=== PATIENT | female | born 1950 | race African-American/Black ===

== ENCOUNTER 2017-01-14 11:05 | Observation (INO) | payer MEDICARE ==
--- NOTE | 2017-01-14 12:03 | CT ---
CT BRAIN WITHOUT CONTRAST: HISTORY: Head injury. Altered mental status. COMPARISON: 10/08/2015 FINDINGS: No evidence of acute infarct, hemorrhage, midline shift, or abnormal extraaxial fluid collections is seen. The ventricular size is normal, and the basilar cisterns are patent. The bony calvarium is intact. The visualized paranasal sinuses and mastoid air cells are well aerated. IMPRESSION: No CT evidence of acute intracranial process. POS: [facility]
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
[2017-01-14 13:56] LABS: #Eosinphils 0.2 thou/uL (0.0-0.7); #Lymphocytes 1.5 thou/uL (1.20-3.40); #Monocytes 0.6 thou/uL (0.11-0.59); #Neutrophils 3.4 thou/uL (1.40-6.50); %Basophils 0.3 % (0.0-1.0); %Eosinophils 3.7 % (0.0-10.0); %Lymphocytes 25.8 % (21.0-51.0); %Monocytes 9.6 % (0.0-10.0); Hematocrit 44.2 % (36.0-47.0); Mean Platelet Volume 7.4 fL (7.4-10.4); Red Blood Cell (RBC) Count 5.49 mill/uL (4.20-5.40); White Blood Cell (WBC) Count 5.7 thou/uL (4.8-10.8)
[2017-01-14] MEDS ORDERED: Adacel (T-DAP) 0.5 ML VIAL ONE (14:01)
[2017-01-14] MEDS ORDERED: Ibuprofen 800 MG TAB ONE (14:02)
[2017-01-14 14:12] LABS: ALT (SGPT) 13 U/L (8-55); AST (SGOT) 17 U/L (5-34); Alkaline Phosphatase 151 U/L (40-150); Anion Gap 12 mmol/L (10-20); BUN (Urea Nitrogen) 20 mg/dL (9.8-20.1); Bilirubin, Total 0.2 mg/dL (0.2-1.2); CK (CPK) 115 U/L (29-168); Calc. Creatinine Clearance 0 mL/min (70-130); Calcium 9.7 mg/dL (7.8-10.44); Carbon Dioxide 26 mmol/L (23-31); Chloride 109 mmol/L (98-107); Estimated GFR-MDRD 53; Globulin 3.3 g/dL (2.4-3.5); Protein, Total 7.3 g/dL (6.0-8.3)
[2017-01-14 14:16] LABS: Troponin I 0.011 ng/mL (< 0.028)
[2017-01-14] MEDS ORDERED: Acetaminophen 500 MG TAB ONE (15:42)
[2017-01-14] MEDS ORDERED: Ondansetron HCl/PF 4 MG/2 ML Vial IVP PRN (15:47)
[2017-01-14] MEDS ORDERED: Dextrose 5% in Water 1,000 ML IV PRN (15:47)
[2017-01-14] MEDS ORDERED: Dextrose 50% Abboject 50 ML SYRINGE SLOW IVP PRN (15:47)
[2017-01-14] MEDS ORDERED: Ondansetron ODT 4 MG TAB PO PRN (15:47)
[2017-01-14 18:29] VITALS: BMI 28.5
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
[2017-01-14] MEDS: Famotidine 20 MG TAB PO SCH (21:10)
[2017-01-15 02:00] LABS: Amphetamine Not Detected (NotDetected); Methadone Not Detected (NotDetected); Methamphetamine Not Detected (NotDetected)
[2017-01-15] MEDS: Acetaminophen 500 MG TAB PO PRN ×2 (03:00→07:55)
[2017-01-15 05:05] LABS: #Basophils 0.1 thou/uL (0.0-0.2); #Eosinphils 0.2 thou/uL (0.0-0.7); #Lymphocytes 1.5 thou/uL (1.20-3.40); #Monocytes 0.5 thou/uL (0.11-0.59); #Neutrophils 3.3 thou/uL (1.40-6.50); %Eosinophils 3.8 % (0.0-10.0); %Lymphocytes 27.5 % (21.0-51.0); %Monocytes 8.8 % (0.0-10.0); Hematocrit 37.5 % (36.0-47.0); Mean Platelet Volume 7.3 fL (7.4-10.4); Red Blood Cell (RBC) Count 4.62 mill/uL (4.20-5.40); White Blood Cell (WBC) Count 5.6 thou/uL (4.8-10.8)
[2017-01-15 05:31] LABS: Anion Gap 12 mmol/L (10-20); BUN (Urea Nitrogen) 20 mg/dL (9.8-20.1); Calc. Creatinine Clearance 52 mL/min (70-130); Calcium 8.8 mg/dL (7.8-10.44); Carbon Dioxide 23 mmol/L (23-31); Chloride 109 mmol/L (98-107); Estimated GFR-MDRD 57; Magnesium 1.8 mg/dL (1.6-2.6); Phosphorus 3.1 mg/dL (2.3-4.7)
--- NOTE | 2017-01-15 07:37 | CT ---
PRELIMINARY REPORT/[facility]/EMERGENCY AFTER HOURS PROCEDURE: EXAM: CT Head Without Intravenous Contrast CLINICAL HISTORY: 66 years old, female; Injury or trauma; Fall; Patient HX: F/u fall TECHNIQUE: Axial computed tomography images of the head/brain without intravenous contrast. COMPARISON: No relevant prior studies available. FINDINGS: Brain: No acute findings. No hemorrhage. No significant white matter disease. No edema. Ventricles: No acute findings. No ventriculomegaly. Bones/joints: No acute findings. No acute fracture. Soft tissues: No acute findings. Sinuses: Unremarkable as visualized. No acute sinusitis. Mastoid air cells: Unremarkable as visualized. No mastoid effusion. IMPRESSION: No acute intracranial pathology. Thank you for allowing us to participate in the care of your patient. Dictated and Authenticated by: Elver Lopes MD 01/15/2017 5:52 AM Central Time ([place] \T\ [place]) FINAL REPORT EMERGENT AFTER HOURS CT OF THE BRAIN WITHOUT CONTRAST: COMPARISON: 01/14/17. FINDINGS/IMPRESSION: I agree with the findings and impression given in the preliminary report per [facility] physician. No ev idence of acute intracranial abnormality. POS: [facility]
[2017-01-15] MEDS: Famotidine 20 MG TAB PO SCH (07:54)
[2017-01-15] MEDS ORDERED: traMADol HCl 50 MG TAB PO PRN (08:50)
[2017-01-15] MEDS ORDERED: Docusate 100 MG CAP PO SCH (09:00)
[2017-01-15] MEDS ORDERED: Senokot 8.6 MG TAB PO SCH (09:00)
[2017-01-15 12:34] VITALS: TEMP 97.6
--- NOTE | 2017-01-15 13:19 | PRG ---
DATE OF SERVICE: 01/15/2017 SUBJECTIVE: Ms. Du is awake and alert this morning. She complains of some forehead soft tissue pain, but denies any photophobia, dizziness, or dyspnea. Her Sharon coma scale is E4, M6, V4, this is her baseline as confirmed by her who was at be dside. The patient has documented intermittent episodes of bradycardiac arrhythmia with rhythm puls es. Blood pressure, however, is stable. OBJECTIVE: VITAL SIGNS: Includes blood pressure 155/55, pulse is 63, respiratory rate 20, maximum temperature in the last 24 hours is 98.2 degrees Fahrenheit. Oxygen saturation is 98% on room air. Lowest hear t rate was noted at 49. HEENT: Reveals normocephalic and atraumatic. Pupils are equal, round, and reactive to light and ac commodation. Extraocular muscles are intact bilaterally. She has no jugular venous distention note d. HEART: Reveals regular rate and rhythm, no murmurs or gallops auscultated. CHEST: Lungs clear to auscultation bilaterally. CARDIOVASCULAR: Regular and unlabored. ABDOMEN: Soft, nontender and nondistended. Liver and spleen are nonpalpable below costal margins. EXTREMITIES: Reveals 2+ radial and pedal pulses bilaterally. No ankle edema is present. NEUROLOGIC: At baseline. LABORATORY DATA: Today includes CBC with 5600 white blood cells, hemoglobin and hematocrit stable a t 12.4 and 37.5 respectively. Platelet count is 255,000. Metabolic profile: Sodium 140, potassium 3.8, chloride is 109, bicarbonate is 23, BUN 20, creatinine is 1.15, glucose 88, magnesium is 1.8, and phosphorus is 3.1. Repeat head CT scan today is unremarkable for any acute intracranial patholo gy. IMPRESSION: 1. Status post blunt head trauma. 2. Acute traumatic brain injury with cerebral concussion. 3. Resolved acute postconcussive syndrome. 4. Acute hypokalemia. 5. Acute hypomagnesemia. 6. Acute bradycardiac arrhythmia, likely secondary to sick sinus syndrome. PLAN: 1. Correct abnormal electrolytes. 2. We will ask Cardiology to evaluate the patient and determine a need for possible pacemaker inser tion. The patient will be discharged home once she is cleared from cardiology standpoint. Above findings and plan discussed with the patient and her . They both indicated understandi ng of information given. I answered their questions.
[2017-01-15 13:33] VITALS: BP 155/55
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
--- NOTE | 2017-01-17 14:48 | EKG ---
Test Reason : Blood Pressure : / mmHG Vent. Rate : 056 BPM Atrial Rate : 056 BPM P-R Int : 208 ms QRS Dur : 084 ms QT Int : 408 ms P-R-T Axes : 041 000 019 degrees QTc Int : 393 ms Sinus bradycardia Otherwise normal ECG Confirmed by FAVIOLA TELLES, GREG Martin ([id number]), graphic editor DOLLY ECHEVARRIA ([id number]) on 01/17/2017 2:48:14 PM Referred By: Confirmed By:GREG SALMERON MD
== END 2017-01-15 13:57 | disposition home or self-care (01) ==
LOC: ERS 11:05 → IMCU/EMU 15:43
PROVIDERS: ADMIT Surgery; ATTEND Surgery
DX: F07.81 Postconcussional syndrome (principal); G89.11 Acute pain due to trauma; E03.9 Hypothyroidism, unspecified; K21.9 Gastro-esophageal reflux disease without esophagitis; I10 Essential (primary) hypertension; H40.9 Unspecified glaucoma; N17.9 Acute kidney failure, unspecified; R00.1 Bradycardia, unspecified; Z79.02 Long term (current) use of antithrombotics/antiplatelets; Z79.82 Long term (current) use of aspirin; Z79.899 Other long term (current) drug therapy; Z90.710 Acquired absence of both cervix and uterus; Z95.828 Presence of other vascular implants and grafts; Z87.820 Personal history of traumatic brain injury; Z86.73 Personal history of transient ischemic attack (TIA), and cerebral infarction without residual deficits
CPT/HCPCS: 12011; 70450 ×2; 72125; 80048; 80053; 80306; 82550; 82553; 83735; 84100; 84484; 85025 ×2; 90471; 90715; 93005; 97116; 97139; 99285; G0378; G8978; G8979; G8980; G8987; G8988; G8989; 36415; G0390; G8996-GN-CH; G8997-GN-CH; G8998-GN-CH

== ENCOUNTER 2017-09-01 19:34 | Emergency (ER) | payer MEDICARE ==
[2017-09-01 20:34] LABS: #Eosinphils 0.1 thou/uL (0.0-0.7); #Lymphocytes 0.5 thou/uL (1.20-3.40); #Monocytes 0.2 thou/uL (0.11-0.59); #Neutrophils 6.5 thou/uL (1.40-6.50); %Eosinophils 1.8 % (0.0-10.0); %Lymphocytes 6.9 % (21.0-51.0); %Monocytes 3.1 % (0.0-10.0); %Neutrophils 88.2 % (42.0-75.0); Hemoglobin 13.7 g/dL (12.0-16.0); Mean Corpuscular HGB CONC 34.3 g/dL (32.0-36.0); Mean Corpuscular Hemoglobin 26.6 pg (27.0-31.0); Mean Corpuscular Volume 77.5 fl (81.0-99.0); Mean Platelet Volume 7.2 fL (7.4-10.4); Platelet Count 277 thou/uL (130-400); RBC Distribution Width 13.2 % (11.5-14.5); Red Blood Cell (RBC) Count 5.15 mill/uL (4.20-5.40); White Blood Cell (WBC) Count 7.3 thou/uL (4.8-10.8)
[2017-09-01 20:56] LABS: ALT (SGPT) 11 U/L (8-55); AST (SGOT) 16 U/L (5-34); Albumin 4.1 g/dL (3.4-4.8); Alkaline Phosphatase 120 U/L (40-150); Anion Gap 12 mmol/L (10-20); BUN (Urea Nitrogen) 24 mg/dL (9.8-20.1); Bilirubin, Total 0.4 mg/dL (0.2-1.2); Calc. Creatinine Clearance 0 mL/min (70-130); Calcium 10.1 mg/dL (7.8-10.44); Carbon Dioxide 25 mmol/L (23-31); Chloride 107 mmol/L (98-107); Estimated GFR-MDRD 63; Globulin 3.2 g/dL (2.4-3.5); Glucose 101 mg/dL (80-115); Potassium 4.1 mmol/L (3.5-5.1); Protein, Total 7.3 g/dL (6.0-8.3); Sodium 140 mmol/L (136-145)
[2017-09-02] MEDS ORDERED: Ondansetron ODT 8 MG TAB ONE (00:07)
[2017-09-02] MEDS ORDERED: Promethazine HCl 25 MG/ML VIAL ONE (00:37)
== END 2017-09-02 01:45 | disposition home or self-care (01) ==
LOC: ERS 19:34
DX: R11.2 Nausea with vomiting, unspecified (principal); R10.13 Epigastric pain; R19.7 Diarrhea, unspecified; E78.5 Hyperlipidemia, unspecified; H40.9 Unspecified glaucoma; I10 Essential (primary) hypertension; Z86.73 Personal history of transient ischemic attack (TIA), and cerebral infarction without residual deficits
CPT/HCPCS: 36415; 80053; 82274; 83630; 83690; 85025; 87045; 87046; 87081; 87324; 87449; 87899; 93005; 96360; 96372; J2550

== ENCOUNTER 2017-10-27 20:35 | Observation (INO) | payer MEDICARE ==
[2017-10-27] MEDS ORDERED: traMADol HCl 50 MG TAB ONE (22:18)
[2017-10-27] MEDS ORDERED: HYDROcodone/Acetaminophen 5/325 mg Tablet ONE (22:26)
[2017-10-27 22:59] LABS: Troponin I Less than 0.010 ng/mL (< 0.028)
[2017-10-28 01:19] LABS: Troponin I Less than 0.010 ng/mL (< 0.028)
[2017-10-28] MEDS: HYDROcodone/Acetaminophen 5/325 mg Tablet PO PRN ×3 (08:46→17:40)
[2017-10-28] MEDS: Clopidogrel Bisulfate 75 MG TAB PO SCH (08:48)
[2017-10-28] MEDS ORDERED: TRIAMTERENE PO SCH (09:00)
[2017-10-28] MEDS ORDERED: HYDROCHLOROTHIAZIDE PO SCH (09:00)
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
--- NOTE | 2017-10-28 12:01 | MRI ---
MRI BRAIN WITHOUT AND WITHOUT CONTRAST: CLINICAL HISTORY: Right facial numbness, stroke symptoms. FINDINGS: The ventricular system is normal in size. There is scattered punctate signal alteration in the bilat eral cerebral hemispheres. There is no acute territorial infarction or intracranial hemorrhagic susc eptibility. No pathologic intraaxial enhancement. The large, central skull base flow voids are anderson nt. [place] intraocular lenses are absent. There is mild mucosal thickening in the paranasal sinuses . IMPRESSION: 1. No acute intracranial abnormalities. 2. Findings most consistent with minimal chronic microvascular ischemic disease. POS: [facility]
[2017-10-28] MEDS ORDERED: AMOXicillin 250 MG CAP PO SCH ×2 (12:30→17:00)
[2017-10-28] MEDS ORDERED: Triamterene/Hydrochlorothiazid 75 mg/50 mg Tablet PO SCH (12:30)
[2017-10-28] MEDS ORDERED: Gadobenate Dimeglumine 529 MG/1 ML (20ML VIAL) ONE (15:06)
--- NOTE | 2017-10-28 16:46 | ULT ---
ULTRASOUND CAROTID DOPPLER: 10/28/17 HISTORY: TIA. CVA protocol. COMPARISON: None. TECHNIQUE: Real time sutton scale, color doppler and spectral analysis of the extracranial carotid and vertebral a rteries was performed. Mild intimal wall thickening of the common carotid arteries. No elevated peak systolic velocities wit in the internal carotid arteries. Right ICA/CCA ratio is 1.13 and left ICA/CCA ratio is 1.44. IMPRESSION: No hemodynamically significant stenosis. POS: [facility]
[2017-10-28] MEDS ORDERED: diphenhydrAMINE 25 MG CAP PO PRN (19:56)
[2017-10-28] MEDS ORDERED: diphenhydrAMINE 25 MG CAP PO SCH (20:00)
[2017-10-28] MEDS: Rosuvastatin 10 MG TAB PO SCH (20:17)
[2017-10-28] MEDS: Mometasone/Formoterol 120 PUFF INHALER INH SCH (20:22)
[2017-10-28] MEDS: Cephalexin 250 MG CAP PO SCH (21:24)
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
[2017-10-29 04:44] LABS: PTT 31.9 SEC (22.9-36.1)
[2017-10-29 04:54] LABS: Anion Gap 13 mmol/L (10-20); BUN (Urea Nitrogen) 16 mg/dL (9.8-20.1); Calc. Creatinine Clearance 55 mL/min (70-130); Calcium 9.8 mg/dL (7.8-10.44); Carbon Dioxide 24 mmol/L (23-31); Cardiac Risk 3.5 (Less than 4.5); Chloride 103 mmol/L (98-107); Cholesterol 188 mg/dl (< 200 Desired); Estimated GFR-MDRD 68; Glucose 110 mg/dL (80-115); HDL Cholesterol 54 mg/dL (>60 Neg Risk); LDL Cholesterol, Calculated 102 mg/dL; Potassium 4.2 mmol/L (3.5-5.1); Sodium 136 mmol/L (136-145); Triglycerides 160 mg/dL (Less than 150)
[2017-10-29 04:55] LABS: Troponin I Less than 0.010 ng/mL (< 0.028)
[2017-10-29] MEDS: HYDROcodone/Acetaminophen 5/325 mg Tablet PO PRN ×4 (05:25→18:25)
[2017-10-29] MEDS: Levothyroxine Sodium 50 MCG TAB PO SCH (05:26)
[2017-10-29] MEDS: Mometasone/Formoterol 120 PUFF INHALER INH SCH ×2 (07:20→18:27)
[2017-10-29] MEDS: Clopidogrel Bisulfate 75 MG TAB PO SCH (10:19)
[2017-10-29] MEDS: Triamterene/Hydrochlorothiazid 75 mg/50 mg Tablet PO SCH (10:19)
[2017-10-29] MEDS: Cephalexin 250 MG CAP PO SCH ×4 (10:23→21:39)
[2017-10-29] MEDS: Rosuvastatin 10 MG TAB PO SCH (21:39)
--- NOTE | 2017-10-29 21:45 | CON ---
DATE OF CONSULTATION: 10/29/2017 HISTORY: Yris Du is a 66-year-old black female that had been following for many years. She has had atypical chest pain in the past and normal noninvasive testing. Most recent evaluation was in 03/2017. She had a normal Lexiscan Cardiolite test without evidence of ischemia, also in 01/2017, echo revealed ejection fraction of 55-60%. She was most recently seen in the office on the 08/25. She complained of bilateral leg cramping the left leg being worse. She was previously evaluated and found to have venous reflux disease. She has never tried to wear compression stockings and again was encouraged to do that. She now is admitted with some right-sided weakness. Recently, she has been in the heat and the family thinks she has not been drinking enough fluid. On the monitor, she has been having episodes of sinus pauses of 1.5 seconds. She denies any history of syncope. She may have dizziness which lasts 1 or 2 seconds. She denies any recent chest pain or shortness of breath. PAST MEDICAL HISTORY: Hypertension, hyperlipidemia. She does have venous reflux disease with a right common femoral and great saphenous vein as well as left proximal great saphenous vein reflux. OPERATIONS: Partial hysterectomy, cholecystectomy, right carpal tunnel release , cataract surgery, left foot surgery. HOME MEDICATIONS: Include amoxicillin 500 mg t.i.d., aspirin 81 daily, clopidogrel 75 mg daily (this was started after previous TIA according to the patient), estradiol 0.5 mg daily, Zetia 10 mg at bedtime, irbesartan 150 daily, levothyroxine 50 mcg daily, nitroglycerin spray p.r.n., omeprazole 40 mg daily, promethazine 25 mg q.4 hours p.r.n., tramadol p.r.n., triamterene- hydrochlorothiazide 75-50 q.a.m., CoQ10 of 100 mg daily. ALLERGIES: AMOXICILLIN and TRAMADOL. SOCIAL HISTORY: She does not smoke or drink. REVIEW OF SYSTEMS: Unremarkable. PHYSICAL EXAMINATION: VITAL SIGNS: Blood pressure 151/76, pulse 78. HEENT: PERRL. NECK: Supple. CHEST: Clear. CARDIAC: S1 and S2 are normal, without any S3, S4 or murmurs. ABDOMEN: Normal bowel sounds, without tenderness, organomegaly. EXTREMITIES: Revealed no clubbing, cyanosis or edema. NEUROLOGIC: Grossly intact. LABORATORY DATA: EKG revealed normal sinus rhythm and is unremarkable. Electrolytes normal. BUN 16, creatinine 0.98. Cholesterol 188, triglycerides 160, LDL 102, HDL 54. TSH is normal. Carotid Doppler examination reveals no hemodynamically significant stenosis. MRI revealed changes consistent with chronic microvascular ischemia. IMPRESSION: 1. Transient right-sided weakness. 2. Sinus pause of 1.5 seconds. At times, she may become lightheaded for 1 or 2 seconds and this may be related. 3. Normal Lexiscan Cardiolite test in 03/2017. 4. Hypertension. 5. Hypercholesterolemia. 6. Moderate aortic insufficiency. 7. Venous insufficiency, patient will not wear compression stockings. PLAN: Patient will continue to be monitored. She does have some symptoms of transient lightheadedness and arrangements will be made for a 30-day monitor to use once she is discharged to see if this ever correlates with her sinus pauses. ADDENDUM: There is a rhythm strip labeled as ventricular tachycardia on 2017 at 1751 hours; however, this is due to artifact with QRS complexes marching through the area. Echocardiogram also showed a small pericardial effusion, ejection fraction 60-65%, evidence for diastolic dysfunction, mild mitral regurgitation, aortic valvular sclerosis, moderate aortic insufficiency and mild to moderate tricuspid regurgitation. [facility]
[2017-10-30] MEDS: HYDROcodone/Acetaminophen 5/325 mg Tablet PO PRN ×3 (00:55→13:06)
[2017-10-30] MEDS: Levothyroxine Sodium 50 MCG TAB PO SCH (06:17)
[2017-10-30] MEDS: Cephalexin 250 MG CAP PO SCH ×2 (09:14→13:06)
[2017-10-30] MEDS: Triamterene/Hydrochlorothiazid 75 mg/50 mg Tablet PO SCH (09:15)
[2017-10-30] MEDS: Clopidogrel Bisulfate 75 MG TAB PO SCH (09:16)
[2017-10-30 11:41] VITALS: BMI 23.3
[2017-10-30 11:45] VITALS: BP 128/84; TEMP 98
--- NOTE | 2017-10-31 11:57 | EKG ---
Test Reason : Blood Pressure : / mmHG Vent. Rate : 064 BPM Atrial Rate : 064 BPM P-R Int : 216 ms QRS Dur : 088 ms QT Int : 404 ms P-R-T Axes : 037 -04 015 degrees QTc Int : 416 ms Sinus rhythm with 1st degree A-V block Minimal voltage criteria for LVH, may be normal variant Borderline ECG Confirmed by RONA SILVER ([id number]), development editor BRANDON DIAZ ([id number]) on 10/31/2017 11:57:13 AM Referred By: Confirmed By:RONA SILVER
== END 2017-10-30 13:15 | disposition home or self-care (01) ==
LOC: ERS 20:35 → 2SE 21:26
PROVIDERS: ADMIT Specialist; ATTEND Specialist
DX: G45.9 Transient cerebral ischemic attack, unspecified (principal); I10 Essential (primary) hypertension; E03.9 Hypothyroidism, unspecified; D50.9 Iron deficiency anemia, unspecified; H40.9 Unspecified glaucoma; E78.00 Pure hypercholesterolemia, unspecified; G47.00 Insomnia, unspecified; K21.9 Gastro-esophageal reflux disease without esophagitis; I35.1 Nonrheumatic aortic (valve) insufficiency; M19.90 Unspecified osteoarthritis, unspecified site; Z79.899 Other long term (current) drug therapy; Z88.0 Allergy status to penicillin; Z88.5 Allergy status to narcotic agent; Z79.82 Long term (current) use of aspirin
CPT/HCPCS: 70553; 80048; 80061; 84443; 84484 ×3; 85610; 85730; 93005; 93306; 93880; 94640 ×2; 97116; 97139 ×2; 99285; G0378 ×2; G8978; G8979; G8980; 36415; A4216; A9579; G8996-GN-CJ; G8997-GN-CI

== ENCOUNTER 2017-12-29 12:34 | Inpatient (IN) | payer MEDICARE ==
[2017-12-29] MEDS ORDERED: Nitroglycerin 0.4 MG TAB (25 Tab Bottle) ONE (12:49)
--- NOTE | 2017-12-29 13:51 | RAD ---
PORTABLE CHEST: History: Chest pain. Comparison: 11-01-09 FINDINGS: Heart size appears slightly enlarged. There are atherosclerotic changes of the aorta. The lungs are c lear of infiltrates. IMPRESSION: Minimal cardiomegaly. POS: [facility]
[2017-12-29] MEDS ORDERED: ISOVUE-370 76%-LOCM 1 ML ONE (13:59)
[2017-12-29 14:18] LABS: ALT (SGPT) 13 U/L (8-55); AST (SGOT) 19 U/L (5-34); Albumin 4.1 g/dL (3.4-4.8); Alkaline Phosphatase 124 U/L (40-150); Anion Gap 14 mmol/L (10-20); BUN (Urea Nitrogen) 33 mg/dL (9.8-20.1); Bilirubin, Total 0.3 mg/dL (0.2-1.2); CK (CPK) 66 U/L (29-168); Calc. Creatinine Clearance 0 mL/min (70-130); Calcium 9.5 mg/dL (7.8-10.44); Carbon Dioxide 23 mmol/L (23-31); Chloride 107 mmol/L (98-107); Estimated GFR-MDRD 34; Globulin 3.4 g/dL (2.4-3.5); Glucose 78 mg/dL (80-115); Potassium 4.3 mmol/L (3.5-5.1); Protein, Total 7.5 g/dL (6.0-8.3); Sodium 140 mmol/L (136-145)
[2017-12-29 14:27] LABS: #Eosinphils 0.2 thou/uL (0.0-0.7); #Lymphocytes 2.1 thou/uL (1.20-3.40); #Monocytes 0.4 thou/uL (0.11-0.59); %Basophils 0.8 % (0.0-1.0); %Eosinophils 3.4 % (0.0-10.0); %Lymphocytes 36.7 % (21.0-51.0); %Monocytes 6.4 % (0.0-10.0); %Neutrophils 52.8 % (42.0-75.0); Hemoglobin 11.9 g/dL (12.0-16.0); Mean Corpuscular HGB CONC 33.9 g/dL (32.0-36.0); Mean Corpuscular Hemoglobin 26.2 pg (27.0-31.0); Mean Corpuscular Volume 77.4 fL (78.0-98.0); Mean Platelet Volume 7.2 fL (7.4-10.4); Platelet Count 339 thou/uL (130-400); RBC Distribution Width 13.5 % (11.5-14.5); Red Blood Cell (RBC) Count 4.52 mill/uL (4.20-5.40); White Blood Cell (WBC) Count 5.6 thou/uL (4.8-10.8)
[2017-12-29] MEDS ORDERED: Morphine 4 MG/ML VIAL ONE ×2 (14:35→15:22)
[2017-12-29 15:00] LABS: CKMB 0.9 ng/mL (0-6.6); Troponin I Less than 0.010 ng/mL (< 0.028)
[2017-12-29] MEDS ORDERED: Ondansetron HCl/PF 4 MG/2 ML Vial ONE (15:22)
--- NOTE | 2017-12-29 16:19 | CT ---
CT OF THE ABDOMEN AND PELVIS WITH IV CONTRAST: Indication: Left lower quadrant abdominal pain. Comparison: CT chest, abdomen and pelvis dated 10-18-15. FINDINGS: There is a mild amount of retained stool within the colon. The appendix is not definitely visualized. No free fluid is evident. The bladder, rectum, and perirectal soft tissues are unremarkable. There is a 1.6 cm cyst involving the superior pole of the right kidney. The gallbladder is surgically absent. Pancreas, adrenal glands, and left kidney are normal appearing. Spleen is normal appearing. There are scattered degenerative and osteoarthritic change. No definite acute osseous abnormality is evident. IMPRESSION: No definite acute CT findings to explain the patient's left lower quadrant abdominal pain. POS: [facility]
[2017-12-29] MEDS ORDERED: Ondansetron ODT 4 MG TAB SL PRN (17:22)
[2017-12-29] MEDS ORDERED: Ondansetron HCl/PF 4 MG/2 ML Vial IVP PRN (17:22)
[2017-12-29 18:03] LABS: Troponin I Less than 0.010 ng/mL (< 0.028)
[2017-12-29 18:45] LABS: #Eosinphils 0.2 thou/uL (0.0-0.7); #Monocytes 0.3 thou/uL (0.11-0.59); #Neutrophils 2.8 thou/uL (1.40-6.50); %Basophils 0.3 % (0.0-1.0); %Eosinophils 4.3 % (0.0-10.0); %Lymphocytes 36.6 % (21.0-51.0); %Monocytes 6.3 % (0.0-10.0); %Neutrophils 52.4 % (42.0-75.0); Hemoglobin 12.9 g/dL (12.0-16.0); Mean Corpuscular HGB CONC 33.2 g/dL (32.0-36.0); Mean Corpuscular Hemoglobin 25.8 pg (27.0-31.0); Mean Corpuscular Volume 77.6 fL (78.0-98.0); Mean Platelet Volume 7.2 fL (7.4-10.4); Platelet Count 325 thou/uL (130-400); RBC Distribution Width 13.5 % (11.5-14.5); Red Blood Cell (RBC) Count 5.02 mill/uL (4.20-5.40); White Blood Cell (WBC) Count 5.4 thou/uL (4.8-10.8)
--- NOTE | 2017-12-29 18:54 | RAD ---
RADIOGRAPH CHEST 2 VIEWS: Date: 12/29/17 Time: 6:13 p.m. HISTORY: 67-year-old female with chest pain. COMPARISON: One view study of 12/29/17 at 1:13 p.m. FINDINGS: On the current study, the lungs are hypoinflated. Furthermore, there are multiple EKG leads overlying the right chest on the frontal view. There is a new finding of mild, small focal pulmonary densities at the bases of the bilateral lower lobes centrally, probably representing sub segmental atelectasis . No pulmonary edema or consolidation. No pleural effusion or pneumothorax. IMPRESSION: 1. Limited study. 2. New small pulmonary densities at the bilateral lung bases, probably representing subsegmental atelectasis. 3. No other acute pathology identified. LYNDSAY [] POS: [facility]
[2017-12-29 19:09] LABS: ALT (SGPT) 15 U/L (8-55); AST (SGOT) 27 U/L (5-34); Albumin 4.4 g/dL (3.4-4.8); Alkaline Phosphatase 136 U/L (40-150); Anion Gap 14 mmol/L (10-20); BUN (Urea Nitrogen) 29 mg/dL (9.8-20.1); Bilirubin, Total 0.3 mg/dL (0.2-1.2); Calc. Creatinine Clearance 33 mL/min (70-130); Calcium 9.9 mg/dL (7.8-10.44); Carbon Dioxide 23 mmol/L (23-31); Chloride 106 mmol/L (98-107); Estimated GFR-MDRD 37; Globulin 3.5 g/dL (2.4-3.5); Glucose 80 mg/dL (80-115); Potassium 4.6 mmol/L (3.5-5.1); Protein, Total 7.9 g/dL (6.0-8.3); Sodium 138 mmol/L (136-145)
[2017-12-29 19:13] LABS: Troponin I Less than 0.010 ng/mL (< 0.028)
[2017-12-29 21:08] LABS: Troponin I Less than 0.010 ng/mL (< 0.028)
[2017-12-29] MEDS ORDERED: Morphine 4 MG/ML VIAL SLOW IVP PRN (21:42)
[2017-12-29] MEDS ORDERED: Ondansetron HCl/PF 4 MG/2 ML Vial SLOW IVP PRN (21:43)
[2017-12-29] MEDS ORDERED: Ibuprofen 800 MG TAB PO SCH (21:45)
[2017-12-29] MEDS ORDERED: Rosuvastatin 10 MG TAB PO SCH (21:45)
[2017-12-29] MEDS: Morphine 2 MG/ML SYRINGE SLOW IVP PRN (21:56)
[2017-12-29] MEDS ORDERED: Zolpidem Tartrate 5 MG TAB PO SCH (22:00)
[2017-12-29 22:28] LABS: Bilirubin Negative (Negative); Blood, Urine Negative (Negative); Clarity CLEAR (Clear); Glucose, Urine (Dipstick) Negative (Negative); Leukocyte Negative (Negative); Nitrite Negative (Negative); Protein, Urine (Dipstick) Negative (Neg-Trace); Urobilinogen 0.2 mg/dL (0.2-1.0); pH, Urine 6.5 (5.0-9.0)
[2017-12-29 22:29] LABS: Bacteria/HPF None Seen HPF (None Seen); Hyaline Casts/LPF 0-3 HYALINE CAST LPF (0-3 Hyaline); Pathc Cast-AUWi Flag 0.29 (0-2.49); RBC/HPF 0-3 HPF (0-3); Squamous Epithelial 0-3 HPF (0-3); WBC/HPF 0-3 HPF (0-3)
[2017-12-30] MEDS: Levothyroxine Sodium 75 MCG TAB PO SCH (05:31)
--- NOTE | 2017-12-30 07:25 | HP ---
DATE OF ADMISSION: 12/29/2017 CHIEF COMPLAINT ON ADMISSION: Chest pain. HISTORY OF PRESENT ILLNESS: Patient is a 67-year-old female who the day prior began to have left-avelina ed chest pain. She remembers doing something strenuous at the left arm, but cannot recall specifical ly what that is. The pain was much worse today, it is intense and sharp right above the left breast. She is not short-winded and hurts worse when she takes a deep breath and then also hurts when she m oves her left arm. Examination in my office showed that I was able to repeat the pain with pressure manipulation. The patient has multiple risk factors including hypertension, dyslipidemia, and famil y history such that I tried to direct admit the patient to observation for further enzymes and a Card iolite stress test while waiting for a bed to be available. The staff at [facility] became nervo us and went ahead and sent her to the emergency room for further evaluation. There in the ER, they e valuated the patient and concluded that she would benefit by a 24-hour observation whereby her cardia c enzymes were monitored and the Cardiolite stress test was performed. She had a negative Cardiolite stress test on 03/25/[address] Rudy Simental. PAST MEDICAL HISTORY: Significant for most recent hospitalization on 10/27/2017, this year for CVA. She has had CVAs in the past, hypothyroidism, hypertension, iron-deficiency anemia, recurrent headac hes, glaucoma, dyslipidemia, insomnia, GERD, and significant post-concussion syndrome from prior head trauma. 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 PAST SURGICAL HISTORY: Includes hysterectomy, leg surgery, and neck surgery. ALLERGIES: She has no known drug allergies. SOCIAL HISTORY: She is and denies use of alcohol, is never smoked. MEDICATIONS ON ADMISSION: Include Aleve once daily, Plavix 75 mg daily, Estrace 0.5 mg daily, hydrox yzine 25 mg 1-2 q.6 hours p.r.n. anxiety or nausea, irbesartan 150 mg every day, Xyzal 5 mg daily, pr omethazine 25 mg p.r.n. nausea q.4, Symbicort 2 puffs twice a day, Synthroid 50 mcg daily, Crestor 10 mg daily. REVIEW OF SYSTEMS: Constitutional: She denies fever or chills. HEENT: Eyes, denies eye pain or vi yumiko changes. EENT: Denies any drainage from ear, nose, or throat, sores in the pharynx. Chest: S ignificant for the tenderness and pain anterior to the left breast with radiation of pain to her back , but denies cough or shortness of breath. Cardiovascular: Denies palpitations but is significant f or the aforementioned left-sided pain. GI: Negative for nausea, vomiting, diarrhea. : Negative for blood in urine or stool or painful urination. Musculoskeletal: No significant pain. Skin: No rashes or lesions. Neurologic: Cranial nerves are intact. Gait normal. Cerebellar function intact . Hemolytic/Lymph: No new areas of swelling or edema or clotting. Psychiatric: Denies any undue s tress or anxiety or depression. PHYSICAL EXAMINATION: VITAL SIGNS: At the time of admission blood pressure 155/82, pulse 55, respirations 18, temperature 98.3, O2 sat 98% on room air. GENERAL: This is a well-developed, well-nourished female, alert, oriented, and cooperative. HEENT: Normocephalic and atraumatic. Pupils equal, round, and reactive to light. Extraocular muscl es are intact. TMs, nares, pharynx are clear. NECK: Supple, trachea midline. CHEST: With atelectasis that clears with cough bibasilarly, tender in chest wall at top left, above the left breast. BREAST: Exams deferred. HEART: Regular rate and rhythm without murmur. ABDOMEN: Soft, nontender without organomegaly. GENITOURINARY: Deferred. EXTREMITIES: Without clubbing, cyanosis, or edema. SKIN: No acute rashes or lesions. NEUROLOGIC: Cranial nerves are intact. Gait and cerebellar function intact. Sensory exam is normal . RADIOLOGICAL: Chest x-ray shows minimal cardiomegaly, no other acute findings. Twelve-lead EKG show s sinus bradycardia with 57 beats per minute, normal ST segments, normal T waves. Carlton normal. LABORATORY DATA: WBCs are 5.4, hemoglobin 12.9, hematocrit 39, platelets of 325. Sodium is 138, pot assium 4.6, chloride 106, CO2 of 23, BUN 29, creatinine 1.66 with glucose at 80. D-dimer 0.42. Trop onins have been negative x2. BNP slightly elevated at 105. Urinalysis is unremarkable. ASSESSMENT: Chest pain, left-sided atypical, but with multiple risk factors while rule out the need for further intervention with a Cardiolite stress test. PLAN: Finish getting the serial troponins. Cardiolite stress test and symptomatic treatment in [facility]. Also, we will ask Dr. Simental to review the case.
[2017-12-30] MEDS ORDERED: Ibuprofen 800 MG TAB PO SCH (09:00)
[2017-12-30] MEDS: Morphine 2 MG/ML SYRINGE SLOW IVP PRN ×2 (12:20→20:51)
[2017-12-30] MEDS: Clopidogrel Bisulfate 75 MG TAB PO SCH (12:21)
[2017-12-30] MEDS: Estradiol 1 MG TAB PO SCH (12:21)
[2017-12-30] MEDS: Hydrochlorothiazide 25 MG TAB PO SCH (12:21)
[2017-12-30 13:35] VITALS: BMI 26.4
--- NOTE | 2017-12-30 17:01 | EKG ---
Test Reason : ER INDICATION Blood Pressure : / mmHG Vent. Rate : 057 BPM Atrial Rate : 057 BPM P-R Int : 204 ms QRS Dur : 080 ms QT Int : 416 ms P-R-T Axes : 039 -03 039 degrees QTc Int : 404 ms Sinus bradycardia Otherwise normal ECG Confirmed by TAYA TELLES, DR. Babcock ([id number]) on 12/30/2017 5:00:39 PM Referred By: ERMD Confirmed By:DR. Yoko BAIN MD
[2017-12-30] MEDS: Rosuvastatin 10 MG TAB PO SCH (20:51)
[2017-12-30] MEDS: Zolpidem Tartrate 5 MG TAB PO SCH (20:53)
[2017-12-31] MEDS: Levothyroxine Sodium 75 MCG TAB PO SCH (05:15)
--- NOTE | 2017-12-31 07:44 | CON ---
DATE OF CONSULTATION: 12/31/2017 HISTORY: Yris Du is a 67-year-old black female I have been following for many years. Starla johnson has had atypical chest pain in the past with normal noninvasive testing. Most recently in the offi ce in 03/2017, she had a normal Lexiscan Cardiolite test without evidence of ischemia. Also, in 01/05 017 echo revealed ejection fraction of 55-60%. In 10/2016, she was admitted with right-sided weaknes s, slurred speech. It was felt that she had a TIA and was placed on aspirin and Plavix. She now is admitted after presenting to Dr. Haroon Samaniego office with chest discomfort. She would scott ve a sharp centralized chest pressure that radiated to the back at rest, lasting 5 minutes. The pain was definitely pleuritic in nature. She also has noted some palpable chest tenderness. On the olinda tor, she has been seen to have up to 2.05 second pauses. On a previous admission in 10/2017 she was also noted to have sinus pauses. She denies any history of lightheadedness, dizziness or syncope. PAST MEDICAL HISTORY: Hypertension, hyperlipidemia, hypothyroidism. She does have venous reflux dis ease, but has been noncompliant with wearing stockings. Specifically, she has reflux in the right co mmon femoral and right great saphenous vein as well as left proximal great saphenous vein. OPERATIONS: Partial hysterectomy, cholecystectomy, right carpal tunnel release, cataract surgery, le ft foot surgery. MEDICATIONS: Symbicort 160 b.i.d., Plavix 75 daily, estradiol 0.5 daily, Atarax 25 mg p.r.n., Avapro 150 daily, levothyroxine 50 mcg daily, Aleve p.r.n., Phenergan p.r.n. Rosuvastatin 10 mg at bedtime . ALLERGIES: AMOXICILLIN and TRAMADOL. SOCIAL HISTORY: She does not smoke or drink. FAMILY HISTORY: Unremarkable. REVIEW OF SYSTEMS: A 12 point review of systems is unremarkable. PHYSICAL EXAMINATION: VITAL SIGNS: Blood pressure 162/70, pulse of 53. HEENT: PERRL. NECK: Supple. LUNGS: Chest is clear. CARDIAC: S1, S2 normal, without any S3, S4 or murmurs. Carotid upstrokes normal without bruits. ABDOMEN: Normal bowel sounds, without tenderness, organomegaly. EXTREMITIES: Revealed no clubbing, cyanosis or edema. NEUROLOGIC: Grossly intact. SKIN: Warm and dry. MUSCULOSKELETAL: Revealed palpable chest wall tenderness to the right of the sternum that seems to r eproduce her pain. LABORATORY: EKGs revealed sinus bradycardia with heart rate in the 50s. Cardiac enzymes are unremar kable. Hemoglobin 12.9, hematocrit 39.0, white count 5400, platelets 325,000. D-dimer 0.42. Sodium 138, potassium 4.6, chloride 106, carbon dioxide 23, BUN 29, creatinine 1.66. TSH is normal. IMPRESSION: 1. Atypical chest discomfort with pain being sharp, pleuritic in nature with palpable chest wall ten derness. 2. Normal noninvasive studies in the past for evaluation of her atypical chest pain. 3. Sinus pause up to 2 seconds. 4. Normal Lexiscan Cardiolite test in 03/2017. 5. Hypertension. 6. Hypercholesterolemia. 7. Moderate aortic insufficiency. 8. Hypothyroidism. 9. Venous insufficiency. PLAN: The patient will undergo Cardiolite testing. Lexiscan will be used due to her sinus arrhythmi a and pauses.
[2017-12-31] MEDS: Clopidogrel Bisulfate 75 MG TAB PO SCH (08:25)
[2017-12-31] MEDS: Estradiol 1 MG TAB PO SCH (08:26)
[2017-12-31] MEDS: Hydrochlorothiazide 25 MG TAB PO SCH (08:27)
[2017-12-31] MEDS: Morphine 2 MG/ML SYRINGE SLOW IVP PRN (10:12)
[2017-12-31] MEDS ORDERED: Regadenoson 0.4 MG/5 ML SYRINGE ONE (10:51)
--- NOTE | 2017-12-31 15:15 | EKG ---
Test Reason : Blood Pressure : / mmHG Vent. Rate : 053 BPM Atrial Rate : 053 BPM P-R Int : 210 ms QRS Dur : 086 ms QT Int : 432 ms P-R-T Axes : 050 018 032 degrees QTc Int : 405 ms Sinus bradycardia with 1st degree A-V block Otherwise normal ECG Confirmed by TAYA TELLES, DR. Babcock ([id number]) on 12/31/2017 3:14:54 PM Referred By: Cristy SHEEHAN Confirmed By:DR. Yoko BAIN MD
--- NOTE | 2017-12-31 16:42 | PDOC.PN ---
- Subjective Encounter Start Date: 12/31/17 Encounter Start Time: 10:30 Subjective: pt up in bed complains of some chest pain and weakness - Objective Vital Signs & Weight: Vital Signs (12 hours) Temp Pulse Resp BP Pulse Ox 12/31/17 15:38 98.2 F 68 16 137/63 98 12/31/17 11:18 98.5 F 76 16 127/64 96 12/31/17 07:28 98.3 F 77 16 137/65 98 Weight Admit Weight 146 lb 3.2 oz Weight 144 lb 14.4 oz I&O: 12/30/17 12/31/17 01/01/18 06:59 06:59 06:59 Intake Total 300 Output Total 600 500 Balance -300 -500 Result Diagrams: 12/29/17 18:38 12/29/17 18:38 Phys Exam - Physical Examination Neck: no nodes, no JVD, supple, full ROM Respiratory: no wheezing, no rales, no rhonchi, wheezing present, clear to auscultation bilateral Cardiovascular: RRR, no significant murmur, no rub, gallop, irregular Gastrointestinal: soft, positive bowel sounds mild epigastric tenderness Dx/Plan (1) Chest pain Code(s): R07.9 - CHEST PAIN, UNSPECIFIED Status: Acute (2) Bradycardia Code(s): R00.1 - BRADYCARDIA, UNSPECIFIED Status: Acute (3) CVA (cerebral vascular accident) Code(s): I63.9 - CEREBRAL INFARCTION, UNSPECIFIED Status: Acute - Plan pt having epigastric pain will give gi cocktail -: going for stress test today. She is not on any bb but -: was bradycardia today -: Pt has no gallbladder * . Review of Systems - Review of Systems Respiratory: negative: Cough, Dry, Shortness of Breath, Hemoptysis, SOB with Excertion, Pleuritic Pain, Sputum, Wheezing Cardiovascular: chest pain Gastrointestinal: negative: Nausea, Vomiting, Abdominal Pain, Diarrhea, Constipation, Melena, Hematochezia, Other Genitourinary: negative: Dysuria, Frequency, Incontinence, Hematuria, Retention , Other - Medications/Allergies Allergies/Adverse Reactions: Allergies Allergy/AdvReac Type Severity Reaction Status Date / Time amoxicillin Allergy Mild itching Verified 10/29/17 00:18 tramadol Allergy Verified 10/28/17 00:48 Medications: Current Medications Aspirin (Aspirin Chewable) 81 mg PO DAILY [facility] Last Admin: 12/31/17 08:25 Dose: 81 mg Clopidogrel Bisulfate (Plavix) 75 mg PO DAILY [facility] Last Admin: 12/31/17 08:25 Dose: 75 mg Lidocaine HCl 10 ml/ Al (Hydroxide/Mg Hydroxide 30 ml) 0 ml SSW ONE [facility] Estradiol (Estrace) 1 mg PO DAILY [facility] Last Admin: 12/31/17 08:26 Dose: 1 mg Hydrochlorothiazide (Hydrochlorothiazide) 25 mg PO DAILY [facility] Last Admin: 12/31/17 08:27 Dose: 25 mg Irbesartan (Avapro) 300 mg PO DAILY [facility] Last Admin: 12/31/17 08:27 Dose: 300 mg Levothyroxine Sodium (Synthroid) 75 mcg PO 0600 [facility] Last Admin: 12/31/17 05:15 Dose: 75 mcg Morphine Sulfate (Morphine) 2 mg SLOW IVP Q2H PRN PRN Reason: Chest Pain Last Admin: 12/31/17 10:12 Dose: 2 mg Morphine Sulfate (Morphine) 4 mg SLOW IVP Q2H PRN PRN Reason: Chest Pain unrelieved by 2 mg Ondansetron HCl (Zofran) 8 mg SLOW IVP Q6H PRN PRN Reason: Nausea/Vomiting Pantoprazole Sodium (Protonix) 40 mg PO DAILY [facility] Last Admin: 12/31/17 08:27 Dose: 40 mg Rosuvastatin Calcium (Crestor) 10 mg PO HS [facility] Last Admin: 12/30/17 20:51 Dose: 10 mg Sodium Chloride (Flush - Normal Saline) 10 ml IVF PRN PRN PRN Reason: Saline Flush Last Admin: 12/31/17 08:28 Dose: 10 ml Zolpidem Tartrate (Ambien) 10 mg PO HS [facility] Last Admin: 12/30/17 20:53 Dose: Not Given
[2017-12-31] MEDS ORDERED: Lidocaine 2% Viscous Solution 10 ML, Aluminum & Magnesium Hydroxide 30 ML SSW SCH (16:45)
--- NOTE | 2017-12-31 16:56 | NM ---
CARDIAC SPECT: CLINICAL HISTORY: 67-year-old female with chest pain, hypertension, and dyslipidemia. TECHNIQUE: A myocardial perfusion scan was performed using the single isotope one day protocol with technetium-9 9m sestamibi. 11 mCi were injected intravenously for the rest exam followed by 31 mCi for the stress exam. Pharmacologic stress with Lexiscan was monitored and interpreted by Dr. Grider. FINDINGS: Fairly homogeneous tracer distribution is seen in the myocardial segments on stress and rest images w ithout fixed or reversible defects. GATED SPECT LVEF: 86%. WALL MOTION EXAM: Normal. IMPRESSION: Normal myocardial perfusion scan. POS: [facility]
[2017-12-31] MEDS: Zolpidem Tartrate 5 MG TAB PO SCH (20:39)
[2017-12-31] MEDS: Rosuvastatin 10 MG TAB PO SCH (20:39)
[2018-01-01] MEDS: Levothyroxine Sodium 75 MCG TAB PO SCH (05:23)
[2018-01-01 09:00] VITALS: TEMP 98.5
[2018-01-01] MEDS: Clopidogrel Bisulfate 75 MG TAB PO SCH (09:00)
[2018-01-01] MEDS: Estradiol 1 MG TAB PO SCH (09:01)
[2018-01-01] MEDS: Hydrochlorothiazide 25 MG TAB PO SCH (09:01)
[2018-01-01 10:53] VITALS: BP 142/65
[2018-01-01] MEDS ORDERED: Acetaminophen 325 MG TAB PO SCH (11:15)
--- NOTE | 2018-01-01 13:16 | DIS ---
DATE OF ADMISSION: 12/29/2017 DATE OF DISCHARGE: 01/01/2018 PRIMARY CARE PROVIDER: Haroon Samaniego M.D. DISCHARGE DIAGNOSES: 1. Chest pain. 2. Likely musculoskeletal etiology for chest pain. 3. Asymptomatic sinus pauses. CONSULTATIONS DURING THIS HOSPITALIZATION: Cardiology, Dr. Simental. CONDITION OF PATIENT ON THE DAY OF DISCHARGE: Stable. I assessed Ms. Du on the day of disch arge. She denies any chest pain or shortness of breath. Vital signs are stable. S1 and S2 are hear d, regular. Lungs are clear to auscultation bilaterally. HOSPITAL COURSE: Ms. Du is a pleasant 67-year-old lady who was admitted to [facility] on 12/29/2017 for chest pain. Please refer to Dr. Samaniego' history and physical note for further details. She was seen by Cardiology Service who felt that her chest pain was atypical an d had a reproducible component with palpation. She had a D-dimer of 0.42. Nuclear stress test on was normal, with left ventricular ejection fraction of 86%. She had brief sinus pauses, whi ch were asymptomatic. Cardiology Service recommends avoiding beta blockers. She has been cleared fo r discharge by Cardiology Service and is being discharged home in a stable condition. DISCHARGE MEDICATIONS: No change was made to her preadmission home medications as dictated in Dr. Robyn trevino' history and physical note dated 12/29/2017. Many thanks for allowing me to participate in your patient's care. Please feel free to contact me wi th any questions or concerns. Please note that Mr. Du had an elevated creatinine of 1.66 on the day of admission. I am rec hecking her basic metabolic profile before she is discharged home. She will be advised to follow up with her primary care provider for further management. DISCHARGE DESTINATION: Home. TOTAL AMOUNT OF TIME SPENT COORDINATING THIS DISCHARGE: 32 minutes.
[2018-01-01 13:25] LABS: Anion Gap 14 mmol/L (10-20); BUN (Urea Nitrogen) 20 mg/dL (9.8-20.1); Calc. Creatinine Clearance 47 mL/min (70-130); Calcium 9.6 mg/dL (7.8-10.44); Carbon Dioxide 24 mmol/L (23-31); Chloride 102 mmol/L (98-107); Estimated GFR-MDRD 57; Glucose 134 mg/dL (80-115); Potassium 3.8 mmol/L (3.5-5.1); Sodium 136 mmol/L (136-145)
== END 2018-01-01 14:00 | disposition home or self-care (01) | DRG 313 ==
LOC: ERS 12:34 → EDSTATUS 12:34 → 2NO 16:15
PROVIDERS: ADMIT Specialist; ATTEND Specialist
DX: R07.89 Other chest pain (principal); R00.1 Bradycardia, unspecified; I35.1 Nonrheumatic aortic (valve) insufficiency; I10 Essential (primary) hypertension; E78.00 Pure hypercholesterolemia, unspecified; E03.9 Hypothyroidism, unspecified; J44.9 Chronic obstructive pulmonary disease, unspecified; I87.2 Venous insufficiency (chronic) (peripheral); R79.89 Other specified abnormal findings of blood chemistry; Z86.73 Personal history of transient ischemic attack (TIA), and cerebral infarction without residual deficits; Z82.49 Family history of ischemic heart disease and other diseases of the circulatory system; K21.9 Gastro-esophageal reflux disease without esophagitis; M19.90 Unspecified osteoarthritis, unspecified site; Z79.02 Long term (current) use of antithrombotics/antiplatelets; Z79.82 Long term (current) use of aspirin; Z88.1 Allergy status to other antibiotic agents; Z88.8 Allergy status to other drugs, medicaments and biological substances
CPT/HCPCS: 36415; 71045; 71046; 74177; 78452; 80048; 80053; 81001; 82553; 83605; 83690; 83880; 84443; 84484; 85025; 85379; 93005; 93010; 93017; 94760; 96374; 96375; 96376; A9500; J0280; J2270; J2405; J2785

== ENCOUNTER 2018-10-06 09:39 | Outpatient (CLI) | payer MEDICARE ==
--- NOTE | 2018-10-06 10:24 | RAD ---
LEFT HIP 2 VIEWS: HISTORY: Left hip pain. FINDINGS: Femoral head contour is normal. Minimal degenerative change. No fracture or acute abnormality. IMPRESSION: No acute finding. POS: OFF
--- NOTE | 2018-10-06 10:31 | RAD ---
LUMBAR SPINE 2 VIEWS: HISTORY: Back pain. FINDINGS: Lumbar vertebrae maintain normal height and alignment. Loss of disk space at L5-S1. Mild to moderat e degenerative spurring. Moderate facet hypertrophy. No evidence of spondylolisthesis. IMPRESSION: Mild to moderate degenerative changes as described. POS: OFF
== END 2018-10-06 09:40 | disposition home or self-care (01) ==
LOC: BICRAD 09:39
PROVIDERS: ATTEND Specialist
DX: M25.552 Pain in left hip (principal); M54.5 Low back pain; M47.816 Spondylosis without myelopathy or radiculopathy, lumbar region
CPT/HCPCS: 72100

== ENCOUNTER 2018-10-18 09:26 | Outpatient (CLI) | payer MEDICARE ==
--- NOTE | 2018-10-18 12:01 | MRI ---
Lumbar spine MRI without contrast: 10/18/2018 COMPARISON: None HISTORY: Low back pain with left hip radiculopathy TECHNIQUE: Multiplanar multisequence MR imaging of the lumbar spine obtained without contrast FINDINGS: The sagittal STIR imaging demonstrates no focal area of osseous marrow edema. On the basis of 5 lumbar type vertebral bodies, the conus medullaris terminates at the L1 level. T12-L1: Intervertebral disc height and signal intensity appears within normal limits. Mild bilateral facet hypertrophy with no significant central canal or neural foraminal stenosis. L1-2: Mild bilateral facet hypertrophy. No significant central canal or neural foraminal stenosis. L2-3: Mild bilateral facet hypertrophy with no significant central canal or neural foraminal stenosis L3-4: Minimal disc bulge. Mild bilateral facet hypertrophy. There is an annular tear in the right for aminal region with a tiny associated disc protrusion. No significant associated central canal or neural foraminal stenosis. L4-5: Disc desiccation and a bilateral facet hypertrophy. No significant central canal or neural fora nessa stenosis. L5-S1: There is disc space narrowing and disc desiccation with mild disc bulge. Vacuum disc formation noted. No significant central canal stenosis. Bilateral facet hypertrophy present with mild/moderate bilateral neural foraminal stenosis, left greater than right. There is an exophytic cyst emanating from the upper pole of the right kidney measuring approximately 1.8 cm. Additional smaller bilateral renal cysts noted. IMPRESSION: Degenerative change within the lumbar spine as detailed above, most significant at the jose mbosacral junction.
== END 2018-10-18 09:27 | disposition home or self-care (01) ==
LOC: SCSMRI 09:26
PROVIDERS: ATTEND Specialist
DX: M47.26 Other spondylosis with radiculopathy, lumbar region (principal); M47.817 Spondylosis without myelopathy or radiculopathy, lumbosacral region
CPT/HCPCS: 72148

== ENCOUNTER 2019-04-08 09:13 | Outpatient (CLI) | payer MEDICARE ==
--- NOTE | 2019-04-08 10:44 | CT ---
CT Abdomen Pelvis W WO con History: Constipation and abdominal pain. Comparison: CT examination December 2017 Findings: Lung bases are clear. No pericardial effusion. Mild atherosclerotic plaque of the aorta. Exophytic cyst superior pole right kidney is unchanged. Liver, spleen, pancreas are unremarkable. No hydronephrosis. Adrenal glands are unremarkable. No retroperitoneal periaortic adenopathy. No free intraperitoneal gas or fluid. Small exophytic hypodensities interpolar inferior pole left kidney are too small fully characterize a lthough out of the imaging appearance of cysts. Small anterior cortical interpolar right renal hypodensities are sub-5 mm and too small to fully characterize. No acute osseous abnormality. High-gr soniya facet arthropathy lower lumbar spine. Advanced degenerative disc space height loss at L5/S1. Circumferential disc bulges L3-S1 with neural foraminal narrowing. Impression: 1. No acute inflammatory process within the abdomen or pelvis. 2. Bilateral renal cysts. 3. Moderate to advanced degenerative changes lower lumbar spine.
== END 2019-04-08 09:14 | disposition home or self-care (01) ==
LOC: SCSCT 09:13
PROVIDERS: ATTEND Specialist
DX: R10.9 Unspecified abdominal pain (principal); N28.1 Cyst of kidney, acquired; M47.816 Spondylosis without myelopathy or radiculopathy, lumbar region
CPT/HCPCS: 74178; 82565

== ENCOUNTER 2019-12-15 10:41 | Outpatient (CLI) | payer MEDICARE ==
--- NOTE | 2019-12-15 11:27 | ULT ---
ULTRASOUND SOFT TISSUE ABDOMINAL WALL: Date: 12/15/2019 HISTORY: 68-year-old female with palpable left upper quadrant mass. FINDINGS/IMPRESSION: Sonographic evaluation of region of palpable concern in the left upper quadrant demonstrates no abnor mality. POS: OFF
== END 2019-12-15 10:42 | disposition home or self-care (01) ==
LOC: BICULT 10:41
PROVIDERS: ATTEND Specialist
DX: R19.02 Left upper quadrant abdominal swelling, mass and lump (principal)
CPT/HCPCS: 76705

== ENCOUNTER 2021-04-24 10:10 | Outpatient (CLI) | payer MEDICARE | END 2021-04-24 10:11 | disposition home or self-care (01) | LOC: BICCT 10:10 | PROVIDERS: ATTEND Specialist | DX: R10.32 Left lower quadrant pain (principal); N28.1 Cyst of kidney, acquired | CPT/HCPCS: 74150 ==

== ENCOUNTER 2021-05-01 11:58 | Emergency (ER) | payer MEDICARE ==
[~2021-05-01 11:58] MED LIST: Iopamidol 370 76% 100 ML VIAL ONE
[2021-05-01 12:40] LABS: Hemoglobin 15.4 g/dL (12.0-16.0); Mean Corpuscular HGB CONC 32.7 g/dL (32.0-36.0); Mean Corpuscular Hemoglobin 25.7 pg (27.0-31.0); Mean Corpuscular Volume 78.7 fL (78.0-98.0); Mean Platelet Volume 7.2 fL (7.4-10.4); Platelet Count 280 thou/uL (130-400); RBC Distribution Width 13.6 % (11.5-14.5); Red Blood Cell (RBC) Count 5.98 mill/uL (4.20-5.40); White Blood Cell (WBC) Count 5.4 thou/uL (4.8-10.8)
[2021-05-01 13:02] LABS: Band 1 % (5-11); Eosinophils 5 % (0-10); Hypochromia SLIGHT = 6-15 cells (100X) (0-5/hpf); Lymphocytes 19 % (21-51); MDiff Complete? YES; Monocytes 1 % (0-10); Neutrophil 67 % (42-75); Platelet Morphology Comment Appears Adequate; Reactive Lymphocytes 6 % (0-10)
[2021-05-01] MEDS ORDERED: traMADol HCl 50 MG TAB ONE (14:58)
[2021-05-01] MEDS ORDERED: Ondansetron ODT 4 MG TAB ONE (14:58)
[2021-05-01 15:56] LABS: Bilirubin Negative (Negative); Blood, Urine Negative (Negative); Clarity Clear (Clear); Glucose, Urine (Dipstick) Normal (Negative); Ketone, Urine Trace mg/dL (Negative); Leukocyte Negative Leu/uL (Negative); Nitrite Negative (Negative); Protein, Urine (Dipstick) 20 mg/dL (Neg-Trace); Urobilinogen Normal mg/dL (Less than 2); pH, Urine 6.5 (5.0-9.0)
[2021-05-01 18:28] LABS: ALT (SGPT) 17 U/L (8-55); AST (SGOT) 25 U/L (5-34); Albumin 4.1 g/dL (3.4-4.8); Alkaline Phosphatase 128 U/L (40-110); Anion Gap 12 mmol/L (10-20); BUN (Urea Nitrogen) 9 mg/dL (9.8-20.1); Bilirubin, Total 0.3 mg/dL (0.2-1.2); Calc. Creatinine Clearance 0 mL/min (70-130); Carbon Dioxide 24 mmol/L (23-31); Chloride 101 mmol/L (98-107); Globulin 3.2 g/dL (2.4-3.5); Glucose 84 mg/dL (83-110); Lipase 24 U/L (8-78); Potassium 4.4 mmol/L (3.5-5.1); Protein, Total 7.3 g/dL (5.8-8.1); Sodium 133 mmol/L (136-145)
[2021-05-01] MEDS ORDERED: Morphine 4 MG/ML VIAL ONE (18:42)
== END 2021-05-01 21:23 | disposition home or self-care (01) ==
LOC: ERS 11:58
DX: R10.32 Left lower quadrant pain (principal); G89.29 Other chronic pain; E78.5 Hyperlipidemia, unspecified; E78.00 Pure hypercholesterolemia, unspecified; I10 Essential (primary) hypertension; Z86.73 Personal history of transient ischemic attack (TIA), and cerebral infarction without residual deficits
CPT/HCPCS: 36415; 74177; 80053; 81003; 83690; 84484; 85025; 93005; 96374; J2270; Q0162; Q9967

== ENCOUNTER 2022-03-17 12:14 | Outpatient (CLI) | payer MEDICARE | END 2022-03-17 12:15 | disposition home or self-care (01) | LOC: BICMAMMO 12:14 | PROVIDERS: ATTEND Specialist | DX: Z12.31 Encounter for screening mammogram for malignant neoplasm of breast (principal); R92.8 Other abnormal and inconclusive findings on diagnostic imaging of breast; Z98.890 Other specified postprocedural states | CPT/HCPCS: 77063; 77067 ==

== ENCOUNTER 2022-07-07 14:37 | Outpatient (CLI) | payer MEDICARE | END 2022-07-07 14:38 | disposition home or self-care (01) | LOC: BICRAD 14:37 | PROVIDERS: ATTEND Specialist | DX: M47.22 Other spondylosis with radiculopathy, cervical region (principal); Z98.1 Arthrodesis status | CPT/HCPCS: 72040 ==

== ENCOUNTER 2022-07-21 13:12 | Outpatient (CLI) | payer MEDICARE | END 2022-07-21 13:13 | disposition home or self-care (01) | LOC: BICCT 13:12 | PROVIDERS: ATTEND Specialist | DX: M47.22 Other spondylosis with radiculopathy, cervical region (principal); Z98.1 Arthrodesis status | CPT/HCPCS: 72125 ==

== ENCOUNTER 2022-08-12 14:28 | Outpatient (CLI) | payer MEDICARE | END 2022-08-12 14:29 | disposition home or self-care (01) | LOC: MRI 14:28 | PROVIDERS: ATTEND Specialist | DX: M54.12 Radiculopathy, cervical region (principal); M47.812 Spondylosis without myelopathy or radiculopathy, cervical region; Z98.1 Arthrodesis status; Z98.890 Other specified postprocedural states; I65.01 Occlusion and stenosis of right vertebral artery | CPT/HCPCS: 72141 ==

== ENCOUNTER 2023-01-07 13:57 | Emergency (ER) | payer MEDICARE ==
[2023-01-07] MEDS ORDERED: Iopamidol-370 76% 500 ML MDV (1 ML CHARGE) ONE (15:59)
[2023-01-07] MEDS ORDERED: Metoclopramide HCl 10 MG/2 ML VIAL ONE (16:14)
[2023-01-07] MEDS ORDERED: diphenhydrAMINE 50 MG/ML VIAL ONE (16:14)
[2023-01-07 16:24] LABS: #Eosinphils 0.3 thou/uL (0.0-0.7); #Monocytes 0.6 thou/uL (0.11-0.59); #Neutrophils 3.3 thou/uL (1.40-6.50); %Basophils 0.5 % (0.0-1.0); %Eosinophils 4.6 % (0.0-10.0); %Lymphocytes 30.9 % (21.0-51.0); %Monocytes 9.9 % (0.0-10.0); %Neutrophils 53.6 % (42.0-75.0); Hematocrit 37.8 % (36.0-47.0); Hemoglobin 12.8 g/dL (12.0-16.0); Mean Corpuscular HGB CONC 33.9 g/dL (32.0-36.0); Mean Corpuscular Hemoglobin 26.5 pg (27.0-31.0); Mean Corpuscular Volume 78.3 fl (78.0-98.0); Mean Platelet Volume 9.7 fL (7.4-10.4); Platelet Count 307 10x3/uL (130-400); RBC Distribution Width 14.6 % (11.5-14.5); Red Blood Cell (RBC) Count 4.83 mill/uL (4.20-5.40); White Blood Cell (WBC) Count 6.1 10x3/uL (4.8-10.8)
[2023-01-07 16:45] LABS: Acetaminophen Less than 10 mcg/mL (10.0-30.0); Alcohol Less than 10.0 mg/dL (Less than 10); Salicylate Less than 8.0 mg/dL (15.0-30.0)
[2023-01-07 16:46] LABS: ALT (SGPT) 33 U/L (8-55); AST (SGOT) 37 U/L (5-34); Albumin 4.2 g/dL (3.4-4.8); Alkaline Phosphatase 124 U/L (40-110); Anion Gap 13 mmol/L (10-20); BUN (Urea Nitrogen) 15 mg/dL (9.8-20.1); Bilirubin, Total 0.3 mg/dL (0.2-1.2); Calc. Creatinine Clearance 0 mL/min (70-130); Carbon Dioxide 24 mmol/L (23-31); Chloride 109 mmol/L (98-107); Estimated GFR 49; Globulin 2.9 g/dL (2.4-3.5); Glucose 101 mg/dL (83-110); Lipase 38 U/L (8-78); Potassium 4.3 mmol/L (3.5-5.1); Protein, Total 7.1 g/dL (5.8-8.1); Sodium 142 mmol/L (136-145)
[2023-01-07 16:50] LABS: Troponin I Less than 0.010 ng/mL (< 0.028)
[2023-01-07 17:05] LABS: Bacteria/HPF 4+ HPF (None Seen); Bilirubin Negative (Negative); Blood, Urine Negative (Negative); CAUTI Indications for Culture Pelvic or flank pain; Clarity Turbid (Clear); Glucose, Urine (Dipstick) Normal (Negative); Ketone, Urine Negative (Negative); Leukocyte Negative Leu/uL (Negative); Nitrite Negative (Negative); Protein, Urine (Dipstick) 10 mg/dL (Neg-Trace); RBC/HPF 0-3 HPF (0-3); Specific Gravity, Urine 1.023 (1.002-1.036); Squamous Epithelial 0-3 HPF (0-3)
[2023-01-07 17:06] LABS: Amphetamine Not Detected (NotDetected); Barbiturates Screen Not Detected (NotDetected); Benzodiazepine Screen Detected (NotDetected); Cocaine Metabolite Screen Not Detected (NotDetected); Methadone Not Detected (NotDetected); Methamphetamine Not Detected (NotDetected); Opiate Screen Detected (NotDetected); Oxycodone Screen Not Detected (NotDetected); Phencyclidine (PCP) Not Detected (NotDetected); THC/Cannabinoid Screen Not Detected (NotDetected); Tricyclic Screen Not Detected (NotDetected); Urine Culture Reflex Yes Yes
== END 2023-01-07 18:35 | disposition home or self-care (01) ==
LOC: ERS 13:57
DX: K59.00 Constipation, unspecified (principal); R10.84 Generalized abdominal pain; G89.29 Other chronic pain; I10 Essential (primary) hypertension; E03.9 Hypothyroidism, unspecified; H40.9 Unspecified glaucoma; Z86.73 Personal history of transient ischemic attack (TIA), and cerebral infarction without residual deficits
CPT/HCPCS: 71045; 74177; 80053; 80306; 80307; 81001; 83605; 83690; 84484; 85025; 87040; 87077; 87086; 87149; 87186; 93005; 96365; 96366; 96375; J1200; J2765; Q9967

== ENCOUNTER 2023-01-20 15:10 | Emergency (ER) | payer MEDICARE ==
[~2023-01-20 15:10] MED LIST changes: -Iopamidol 370 76% 100 ML VIAL ONE; +Iopamidol-370 76% 500 ML MDV (1 ML CHARGE) ONE
[2023-01-20] MEDS ORDERED: Naloxone HCl 2 mg/2 ml Syringe ONE (15:15)
[2023-01-20 15:41] LABS: Bilirubin Negative (Negative); Blood, Urine Negative (Negative); Glucose, Urine (Dipstick) Negative (Negative); Ketone, Urine Negative (Negative); Leukocyte Negative (Negative); Nitrite Positive (Negative); Protein, Urine (Dipstick) Negative (Neg-Trace); Urobilinogen 0.2 mg/dL (Less than 2)
[2023-01-20 15:42] LABS: Clarity Hazy (Clear)
[2023-01-20 15:47] LABS: CAUTI Indications for Culture Alt mental st,lethar; RBC/HPF 0-3 HPF (0-3)
[2023-01-20 15:48] LABS: Bacteria/HPF 4+ HPF (None Seen); Urine Culture Reflex No No
[2023-01-20 15:49] LABS: Amphetamine Not Detected (NotDetected); Barbiturates Screen Not Detected (NotDetected); Benzodiazepine Screen Not Detected (NotDetected); Cocaine Metabolite Screen Not Detected (NotDetected); Methadone Not Detected (NotDetected); Methamphetamine Not Detected (NotDetected); Opiate Screen Detected (NotDetected); Oxycodone Screen Not Detected (NotDetected); Phencyclidine (PCP) Not Detected (NotDetected); THC/Cannabinoid Screen Not Detected (NotDetected); Tricyclic Screen Not Detected (NotDetected)
[2023-01-20 15:53] LABS: #Eosinphils 0.2 thou/uL (0.0-0.7); #Monocytes 0.4 thou/uL (0.11-0.59); #Neutrophils 3.3 thou/uL (1.40-6.50); %Basophils 0.4 % (0.0-1.0); %Eosinophils 3.7 % (0.0-10.0); %Lymphocytes 23.2 % (21.0-51.0); %Monocytes 8.6 % (0.0-10.0); %Neutrophils 63.9 % (42.0-75.0); Hematocrit 35.5 % (36.0-47.0); Mean Corpuscular HGB CONC 33.8 g/dL (32.0-36.0); Mean Corpuscular Hemoglobin 25.9 pg (27.0-31.0); Mean Corpuscular Volume 76.7 fl (78.0-98.0); Platelet Count 308 10x3/uL (130-400); RBC Distribution Width 13.9 % (11.5-14.5); Red Blood Cell (RBC) Count 4.63 mill/uL (4.20-5.40); White Blood Cell (WBC) Count 5.1 10x3/uL (4.8-10.8)
[2023-01-20] MEDS ORDERED: cefTRIAXone (ROCEPHIN) 2 GM VIAL ONE (16:15)
[2023-01-20 16:19] LABS: Troponin I 0.017 ng/mL (< 0.028)
[2023-01-20] MEDS ORDERED: diphenhydrAMINE 50 MG/ML VIAL ONE (16:33)
[2023-01-20] MEDS ORDERED: LORazepam 2 MG/ML SYR.(CARPUJECT) ONE (16:33)
[2023-01-20] MEDS ORDERED: Haloperidol Lactate 5 MG/ML VIAL ONE (16:33)
[2023-01-20 17:01] LABS: ALT (SGPT) 16 U/L (8-55); AST (SGOT) 21 U/L (5-34); Acetaminophen Less than 10 mcg/mL (10.0-30.0); Albumin 4.3 g/dL (3.4-4.8); Alcohol Less than 10.0 mg/dL (Less than 10); Alkaline Phosphatase 133 U/L (40-110); Anion Gap 15 mmol/L (10-20); BUN (Urea Nitrogen) 15 mg/dL (9.8-20.1); Bilirubin, Total 0.3 mg/dL (0.2-1.2); CK (CPK) 89 U/L (29-168); Calc. Creatinine Clearance 0 mL/min (70-130); Calcium 10.1 mg/dL (7.8-10.44); Carbon Dioxide 20 mmol/L (23-31); Chloride 110 mmol/L (98-107); Estimated GFR 55; Globulin 2.8 g/dL (2.4-3.5); Glucose 114 mg/dL (83-110); Potassium 4.2 mmol/L (3.5-5.1); Protein, Total 7.1 g/dL (5.8-8.1); Salicylate Less than 8.0 mg/dL (15.0-30.0); Sodium 141 mmol/L (136-145)
[2023-01-20 17:45] LABS: Lipase 29 U/L (8-78)
== END 2023-01-20 20:51 | disposition home or self-care (01) ==
LOC: ERS 15:10
DX: R10.9 Unspecified abdominal pain (principal); R11.10 Vomiting, unspecified; N39.0 Urinary tract infection, site not specified; I10 Essential (primary) hypertension; E78.00 Pure hypercholesterolemia, unspecified; Z79.01 Long term (current) use of anticoagulants
CPT/HCPCS: 51702; 70450; 71045; 74177; 80306; 80307; 81001; 82140; 82550; 83690; 83880; 84484; 87040; 87077; 87086; 87186; 93005; 96361; 96365; 96366; 96374; 96375; 99285; J2060; 36415; 80053; 84443; 85025; J0696; J1200; J1630; J2310; Q9967

== ENCOUNTER 2023-11-25 14:58 | Outpatient (CLI) | payer MEDICARE | END 2023-11-25 14:59 | disposition home or self-care (01) | LOC: ULT 14:58 | PROVIDERS: ATTEND Specialist | DX: Z01.89 Encounter for other specified special examinations (principal); M79.89 Other specified soft tissue disorders ==

== ENCOUNTER 2025-02-15 14:04 | Outpatient (CLI) | payer MEDICARE | END 2025-02-15 14:05 | disposition home or self-care (01) | LOC: RAD 14:04 | PROVIDERS: ATTEND Specialist | DX: M54.50 Low back pain, unspecified (principal); M47.816 Spondylosis without myelopathy or radiculopathy, lumbar region; M47.817 Spondylosis without myelopathy or radiculopathy, lumbosacral region; M48.07 Spinal stenosis, lumbosacral region; M40.56 Lordosis, unspecified, lumbar region | CPT/HCPCS: 72100 ==